=== PATIENT | female | born 1985 | race African-American/Black ===

== ENCOUNTER 2016-11-13 07:23 | Observation (INO) | payer OTHER, BC ==
[~2016-11-13] VITALS: Ht 157.5 cm; Wt 53.0 kg
[2016-11-13] VITALS (14 sets, daily range): BP systolic 130–172; BP diastolic 80–95; PULSE 72–86; RESP 16–19; TEMP 98; Ht 157.5 cm; Wt 53.0 kg
[~2016-11-13 07:23] MED LIST: AMLO-218 PO; ARIP5TAB7 PO; BENA40TA41 PO; CARV25TA79 PO; CLON-379 PO; CNC30T PO; DOXA1TAB PO; ESOM40CA PO; HYDR-3671 PO; HYDR200T5 PO; HYDR2TAB15 PO; LEVE500S9 PO; METO5TAB11 PO; PRED2.5T3 PO; SEVE800T10 PO; SEVE800T7 PO
[2016-11-13] MEDS ORDERED: FLUT9.9S NASAL (07:49)
[2016-11-13] MEDS ORDERED: ONDA4TAB8 PO (07:49)
[2016-11-13] MEDS ORDERED: ACET325T33 PO (07:49)
[2016-11-13] MEDS ORDERED: D-ME473S18 PO (07:49)
[2016-11-13] MEDS: ACETAMINOPHEN 325 MG TAB PO ONE ×2 (07:54→10:08)
[2016-11-13] MEDS: ONDANSETRON (ODT) 4 MG TAB ODT STA ×2 (07:54→10:08)
[2016-11-13] MEDS ORDERED: HYDROmorphONE 1 MG/ML SYG IV STA (08:26)
[2016-11-13] MEDS ORDERED: ONDANSETRON 4 MG INJ IV STA (08:26)
[2016-11-13 08:34] LABS: HEMATOCRIT 25.8 % (37.0-47.0); HEMOGLOBIN 8.4 g/dl (12.0-16.0); MEAN CORPUSCULAR HEMOGLOBIN 31.4 pg (29.0-33.0); MEAN CORPUSCULAR HGB CONC 32.6 g/dl (32.0-37.0); MEAN CORPUSCULAR VOLUME 96.1 fl (82.0-101.0); MEAN PLATELET VOLUME 9.4 fl (7.4-10.4); PLATELET COUNT 107 10^3/UL (140-440); RED BLOOD COUNT 2.68 10^6/ul (4.20-5.40); RED CELL DISTRIBUTION WIDTH 18.9 % (11.5-14.5); UNCORRECTED WBC 3.9 10^3/ul (4.8-10.8); WHITE BLOOD COUNT 3.9 10^3/ul (4.8-10.8)
[2016-11-13 08:38] LABS: ALBUMIN 3.5 g/dl (3.3-4.9)
[2016-11-13 08:40] LABS: CREATININE 11.98 mg/dl (0.44-1.00)
[2016-11-13 08:41] LABS: CALCIUM 8.3 mg/dl (8.4-10.2)
[2016-11-13 08:49] LABS: POTASSIUM 7.1 mmol/L (3.5-5.1)
[2016-11-13] MEDS ORDERED: DEXTROSE 50% 50 ML SYRINGE IV STA ×2 (08:49→12:49)
[2016-11-13] MEDS ORDERED: INSULIN REGULAR, HUMAN 100 UNIT/1 ML 3ML VIAL IV STA (08:49)
[2016-11-13] MEDS ORDERED: NA BICARBONATE 8.4% 50 ML SYG IV STA (08:49)
--- NOTE | 2016-11-13 08:58 | RADRPT ---
PROCEDURE: XR Chest. CLINICAL INDICATION: Chest pain TECHNIQUE: Single portable view of the chest was obtained COMPARISON: 09/19/16 FINDINGS: The heart is enlarged. The lungs are clear. There is no pleural effusion or pneumothorax. RPTAT: AA IMPRESSION: Mild Cardiomegaly. .Jaleel Cueto MD, Date Time Electronically viewed and signed by .Jaleel Cueto MD, on 11/13/2016 08:57 .S/
[2016-11-13 09:09] LABS: CONDITION 1; LH ANALYZER COMMENTS 1
[2016-11-13 09:32] LABS: ANISOCYTOSIS 2+; EOSINOPHILS # 0.1 10^3/ul (0.0-0.5); LYMPHOCYTES # 0.7 10^3/ul (0.8-2.9); MONOCYTE # 0.1 10^3/ul (0.3-0.9); NEUTROPHIL # 2.9 10^3/ul (1.6-7.5); PLATELET ESTIMATE PLT APPEAR DECREASED
[2016-11-13] MEDS ORDERED: DIPHENHYDRAMINE 50 MG INJ IV ONE (10:30)
[2016-11-13] MEDS ORDERED: ACETAMINOPHEN 325 MG TAB PO PRN ×2 (11:00→11:30)
[2016-11-13] MEDS ORDERED: ONDANSETRON 4 MG INJ IV PRN (11:00)
--- NOTE | 2016-11-13 11:06 | ERA ---
ER Documentation Chief Complaint Date/Time DATE: 11/13/16 TIME: 11:00 Chief Complaint flu like symptoms bodyaches HPI This is a 31-year-old dialysis patient who missed dialysis today. She says she has had diffuse body aches myalgias nausea some congestion and fatigue for the past 2 days. She does not think she has had a fever but not sure. She has had a slight cough slight sore throat no vomiting no short of breath no diarrhea no abdominal pain no photophobia or stiff neck headache. ROS All systems reviewed and are negative except as per history of present illness. Medications Home Meds Active Scripts Sevelamer Hcl* (Renagel*) 800 Mg Tablet, 1600 MG PO WITH MEALS, #90 TAB Prov:LYNNETTE SUTTON MD 09/24/16 Hydromorphone Hcl* (Dilaudid*) 2 Mg Tablet, 1 MG PO Q4H Y for PAIN LEVEL 6-10, # 1 TAB Prov:LYNNETTE SUTTON MD 09/24/16 Metoclopramide Hcl* (Metoclopramide Hcl*) 5 Mg Tablet, 5 MG PO TID Y for NAUSEA , #90 TAB Prov:LYNNETTE SUTTON MD 09/24/16 Esomeprazole Mag Trihydrate (Nexium) 40 Mg Capsule.dr, 40 MG PO BID, #60 CAP Prov:LYNNETTE SUTTON MD 09/24/16 Reported Medications Benazepril Hcl* (Benazepril Hcl*) 40 Mg Tablet, 40 MG PO BID, TAB 06/04/15 Doxazosin Mesylate* (Doxazosin Mesylate*) 1 Mg Tablet, 1 MG PO HS, TAB 06/04/15 Levetiracetam* (Keppra*) 500 Mg/5 Ml Solution, 500 MG PO BID, BOTTLE 06/04/15 Carvedilol* (Carvedilol*) 25 Mg Tablet, 25 MG PO BID, TAB 06/04/15 Prednisone* (Prednisone*) 2.5 Mg Tablet, 2.5 MG PO DAILY, TAB 06/04/15 Clonidine Hcl* (Clonidine Hcl*) 0.1 Mg Tab, 0.1 MG PO Q6, TAB 06/04/15 Hydralazine Hcl* (Hydralazine Hcl*) 25 Mg Tab, 25 MG PO Q6, TAB 06/04/15 Hydroxychloroquine Sulfate* (Plaquenil*) 200 Mg Tab, 200 MG PO DAILY, TAB 06/04/15 Cinacalcet* (Sensipar*) 30 Mg Tab, 30 MG PO, TAB 06/04/15 Aripiprazole* (Abilify*) 5 Mg Tab, 5 MG PO DAILY, TAB 06/04/15 Sevelamer Carbonate* (Renvela*) 800 Mg Tablet, 1600 MG PO WITH MEALS, TAB 06/04/15 Amlodipine Besylate* (Norvasc*) 10 Mg Tablet, 10 MG PO DAILY, TAB 06/04/15 Allergies Allergies: Coded Allergies: banana (Verified Allergy, Intermediate, 09/19/16) cyclobenzaprine (Verified Allergy, Intermediate, HIVES, 09/19/16) Metronidazole HCl (Verified Allergy, Unknown, hives, 09/19/16) codeine (Verified Allergy, Unknown, hives, 09/19/16) metronidazole (Verified Allergy, Unknown, hives, 09/19/16) morphine (Verified Allergy, Unknown, local rash, 09/19/16) Uncoded Allergies: SALMON (Allergy, Unknown, 06/05/15) PMhx/Soc History of Surgery: Yes (abdominal surgery laparoscopic x 7) Anesthesia Reaction: No Hx Neurological Disorder: Yes (stroke x3) Hx Respiratory Disorders: Yes (Chronic Sinusitis) Hx Cardiac Disorders: No (Heart murmur, pulmanry HTN, cardiomegaly) Hx Psychiatric Problems: Yes (anxiety) Hx Alcohol Use: No Hx Substance Use: Yes (marijuana) Hx Tobacco Use: No Smoking Status: Never smoker FmHx Family History: No coronary disease Physical Exam Vitals Vital Signs Date Time Temp Pulse Resp B/P Pulse Ox O2 Delivery O2 Flow Rate FiO2 11/13/16 07:34 98.0 85 18 161/86 100 Physical Exam Const: Well-developed, well-nourished Head: Atraumatic, normocephalic Eyes: Normal Conjunctiva, PERRLA, EOMI, normal sclera, no nystagmus ENT: Normal External Ears, Nose and Mouth, moist mucus membranes. Neck: Full range of motion. No meningismus, no lymphadenopathy. Resp: Clear to auscultation bilaterally, no wheezing, rhonchi, rales Cardio: Regular rate and rhythm, no murmurs, S1 S2 present Abd: Soft, non tender x 4, non distended. Normal bowel sounds, no guarding or rebound, no pulsitile abdominal masses or bruits Skin: No petechiae or rashes, no ecchymosis , no maculopapular rash Back: No midline or flank tenderness Ext: No cyanosis, or edema, FROM x 4, normal inspection, neurovascularly intact x 4 Neur: Awake and alert, STR 5/5 x 4, sensation intact x 4, no focal findings, cerebellum intact Psych: Normal Mood and Affect Result Diagram: 11/13/1671911/13/16719 Results 24 hrs Laboratory Tests Test 11/13/16 07:20 Alanine Aminotransferase (ALT/SGPT) 22IU/L Albumin 3.5g/dl Albumin/Globulin Ratio 1.00 Alkaline Phosphatase 90IU/L Anion Gap 21 Anisocytosis 2+ Aspartate Amino Transf (AST/SGOT) 14IU/L Basophils # 0.010^3/ul Basophils % 1.0% Blood Morphology Comment Blood Urea Nitrogen 42mg/dl Calcium Level 8.3mg/dl Carbon Dioxide Level 24mmol/L Chloride Level 102mmol/L Creatinine 11.98mg/dl Direct Bilirubin 0.00mg/dl Eosinophils # 0.110^3/ul Eosinophils % 3.0% Globulin 3.50g/dl Glucose Level 76mg/dl Hematocrit 25.8% Hemoglobin 8.4g/dl Indirect Bilirubin 0.0mg/dl Lymphocytes # 0.710^3/ul Lymphocytes % 18.0% Mean Corpuscular Hemoglobin 31.4pg Mean Corpuscular Hemoglobin Concent 32.6g/dl Mean Corpuscular Volume 96.1fl Mean Platelet Volume 9.4fl Monocytes # 0.110^3/ul Monocytes % 3.0% Neutrophils # 2.910^3/ul Neutrophils % 75.0% Nucleated Red Blood Cells # 10^3/ul Nucleated Red Blood Cells % /100WBC Platelet Count 54295^3/UL Platelet Estimate PLT APPEAR DECREASED Potassium Level 7.1mmol/L Red Blood Count 2.6810^6/ul Red Cell Distribution Width 18.9% Sodium Level 140mmol/L Total Bilirubin 0.0mg/dl Total Protein 7.0g/dl White Blood Count 3.910^3/ul Current Medications Medications (Trade) Dose Ordered Sig/Gen Route PRN Reason Start Time Stop Time Status Last Admin Dose Admin Ondansetron HCl (Zofran Odt) 4 mg ONCE STAT ODT 11/13/16 07:47 11/13/16 07:49 DC 11/13/16 10:08 Acetaminophen (Tylenol Tab) 650 mg ONCE ONCE PO 11/13/16 08:00 11/13/16 08:01 DC 11/13/16 10:08 Hydromorphone HCl (Dilaudid) 1 mg ONCE STAT IV 11/13/16 08:26 11/13/16 08:27 DC 11/13/16 10:10 Ondansetron HCl (Zofran Inj) 4 mg ONCE STAT IV 11/13/16 08:26 11/13/16 08:27 DC 11/13/16 10:08 Insulin Human Regular (Humulin R) 10 unit ONCE STAT IV 11/13/16 08:49 11/13/16 08:50 DC 11/13/16 10:09 Dextrose (D50w Syringe) 50 ml ONCE STAT IV 11/13/16 08:49 11/13/16 08:50 DC 11/13/16 10:10 Sodium Bicarbonate (Na Bicarb 8.4% Syg) 50 ml ONCE STAT IV 11/13/16 08:49 11/13/16 08:50 DC 11/13/16 10:10 Diphenhydramine HCl (Benadryl) 25 mg ONCE ONCE IV 11/13/16 10:30 11/13/16 10:31 DC 11/13/16 10:12 Procedures/MDM PROCEDURE: XR Chest. CLINICAL INDICATION: Chest pain TECHNIQUE: Single portable view of the chest was obtained COMPARISON: 09/19/16 FINDINGS: The heart is enlarged. The lungs are clear. There is no pleural effusion or pneumothorax. RPTAT: AA IMPRESSION: Mild Cardiomegaly. .Jaleel Cueto MD, Date Time Electronically viewed and signed by .Jaleel Cueto MD, on 11/13/2016 08: 57 .S/ CC: TERESITA VASQUEZ DO Patient's flu swab is still pending. The patient does not like she has a viral illness. Potassium is elevated at 7.1 however. She was treated with IV bicarbonate, insulin, D50 IV. I will admit her to the hospital to obtain hemodialysis to correct her hyperkalemia Critical Care: Time: 30 minutes Treatments/Evaluations: Close monitoring and treatment of unstable vital signs, cardiorespiratory, and neurologic status, while maintaining tight balance of fluid, respiratory, and cardiac interventions. Departure Diagnosis: Primary Impression: Hyperkalemia Condition: Stable TERESITA VASQUEZ DO Nov 13, 2016 11:06
[2016-11-13] MEDS ORDERED: ONDANSETRON 4 MG TAB PO PRN (11:30)
[2016-11-13] MEDS ORDERED: NACL 0.9% 3 ML SYG IV SCH (11:30)
[2016-11-13] MEDS ORDERED: DOCUSATE SODIUM 100 MG CAP PO PRN (11:30)
[2016-11-13] MEDS ORDERED: METOCLOPRAMIDE 5 MG TAB PO PRN (11:30)
[2016-11-13] MEDS ORDERED: HYDROmorphONE 2 MG TAB PO PRN (11:30)
[2016-11-13] MEDS ORDERED: LORAZEPAM 0.5 MG TAB PO PRN (11:30)
[2016-11-13] MEDS ORDERED: SEVELAMER CARBONATE 0.8 GM PKT PO SCH (12:00)
[2016-11-13] MEDS: ARIPIPRAZOLE 5 MG TAB PO SCH (12:00)
[2016-11-13] MEDS: LEVETIRACETAM (100 MG/ML) 5ML CUP PO SCH ×2 (13:05→23:41)
[2016-11-13] MEDS: predniSONE 2.5 MG TAB PO SCH (13:06)
[2016-11-13] MEDS: HYDROXYCHLOROQUINE 200 MG TAB PO SCH (13:06)
[2016-11-13] MEDS: AMLODIPINE 10 MG TAB PO SCH (13:07)
[2016-11-13] MEDS: CINACALCET 30 MG TAB PO SCH (13:08)
[2016-11-13] MEDS: SEVELAMER 800 MG TAB PO SCH ×2 (13:46→23:46)
--- NOTE | 2016-11-13 16:11 | CONS ---
DATE OF ADMISSION: 11/13/2016 DATE OF CONSULTATION: 11/13/2016 TYPE OF CONSULTATION: Nephrology. REASON FOR CONSULTATION: End-stage renal disease, hyperkalemia. PHYSICIAN REQUESTING CONSULT: Dr. Hutchins HISTORY OF PRESENT ILLNESS: This is a 31-year-old female with a past medical history of lupus, end- stage renal disease on dialysis Friday, Friday, and Friday, history of hypertension, anemia, sheet metal erector christel migraine, seizure disorder, gastritis, polycystic ovarian disease, and history of sinus polyps w hortensia presents to [facility] with complaints of lethargy and weakness. The patient s tated over the last several days she has noted increased fatigue, body aches, myalgia. The patient as a result came into the emergency room. Upon arrival, the patient had laboratory drawn which show ed a potassium of 5.1. Imaging data showed mild cardiomegaly but no pneumothorax. In the emergency room, the patient was given IV insulin, sodium bicarbonate, and dextrose. The patient denied any r ecent hemoptysis, hemetemesis, or hematochezia. PAST MEDICAL HISTORY: As stated above, history of lupus, end-stage renal disease, chronic sinusitis , hypertension, anemia, seizure disorder, chronic migraines, opiate dependence. PAST SURGICAL HISTORY: Status post AV fistula, status post multiple sinus surgeries. ALLERGIES: MULTIPLE. PLEASE SEE LIST. SOCIAL HISTORY: Does not drink, smoke, or do drugs. FAMILY HISTORY: No family history of kidney disease or heart disease. MEDICATIONS: Have been reviewed. REVIEW OF SYSTEMS: A 14-point review of systems was conducted. Pertinent positives stated in HPI; otherwise negative. PHYSICAL EXAMINATION: VITAL SIGNS: Blood pressure is currently 170/92, respiration 16, pulse 92, temperature 98.0. HEENT: Head is normocephalic. Pupils are reactive to light. NECK: Supple. HEART: Regular rate. LUNGS: Show diminished breath sounds at base. ABDOMEN: Soft, nontender to palpation. No rebound or guarding. EXTREMITIES: Negative for clubbing, cyanosis, no edema. DERMATOLOGIC: No rashes. MUSCULOSKELETAL: No joint effusions. NEUROLOGIC: No focal deficits. LABORATORY DATA: Has been reviewed and does show a white count of 3.9, hemoglobin 8.4, hematocrit 2 5.8, platelet count is 107. Sodium 140, potassium 7.1, BUN 42, creatinine 11.98. IMAGING STUDIES: Chest x-ray reviewed. ASSESSMENT AND PLAN: This is a 31-year-old female who presents with: 1. End-stage renal disease. The patient is currently hyperkalemic with potassium 7.1. We will vlad n for urgent hemodialysis for 4 hours on a 2K bath, calcium 2.5, ultrafiltrate as tolerated. 2. Hyperkalemia secondary to end-stage renal disease. The patient will be dialyzed for 4 hours on a 2 potassium bath. We will anticipate daily dialysis until the patient is normokalemic. The patie nt has been advised on keeping with a renal diet. 3. Hypertension. Continue current blood pressure regimen. Continue ultrafiltration dialysis. 4. Mineral bone disorder. Monitor calcium and phosphorus levels. Continue phosphate binders. 5. History of lupus. Continue Plaquenil and prednisone. 6. Anemia. Continue to monitor hemoglobin and hematocrit levels. We will give Epogen. 7. History of anxiety disorder. Continue to monitor and give Ativan as needed. 8. Seizure disorder. Continue Keppra. Thank you, Dr. Hutchins, for this interesting consultation. It will be a pleasure to follow the jim gilman with you throughout the hospital course. Dictated By: RAGINI DE LA TORRE/ABDOULAYE Conf#: [id number] DID#: [id number]
[2016-11-13] MEDS ORDERED: PANTOPRAZOLE (EC) 40 MG TAB PO SCH (18:00)
[2016-11-13] MEDS ORDERED: LIDOCAINE 1% (MDV) 20 ML INJ SC ONE (18:30)
--- NOTE | 2016-11-13 18:33 | HP ---
DATE OF ADMISSION: 11/13/2016 CONSULTANTS: Dr. Edgar, Nephrology. CHIEF COMPLAINT: Generalized weakness. HISTORY OF PRESENT ILLNESS: This is a pleasant 31-year-old female who is known to me from her prior hospitalization with a past medical history of end-stage renal disease, lupus, esophagitis, gastrop aresis, anemia, essential hypertension, mineral bone disease, anxiety, on hemodialysis on Friday, , and Friday, who missed her dialysis yesterday secondary to being weak and had flu-like symp toms. Today, patient presents to [facility] emergency room secondary to having flu-like sy mptoms. Vitals at the time of arrival to the emergency room were found to be temperature 98, pulse 85, respiration 18, blood pressure 161/86, oxygen saturation 100%. WBC 3.9, hemoglobin 8.4, hematoc rit 25.8, platelets of 107. Potassium 7.1, BUN of 42, creatinine 11.98. The patient was treated wi D5W in the course of emergency room, sodium bicarbonate, 10 units of insulin, Dilaudid, Zofran, a nd Tylenol and has been seen and evaluated by nephrology and will obtain her hemodialysis urgently. PAST MEDICAL AND SURGICAL HISTORY: 1. Lupus. 2. Hypertension. 3. Anxiety. 4. End-stage renal disease. 5. GERD. 6. Esophagitis. 7. Seizure disorder. 8. History of chemotherapy secondary to lupus. MEDICATIONS: 1. Amlodipine 10 mg. 2. Abilify 5 mg. 3. Benazepril 40 mg. 4. Coreg 25 mg. 5. Sensipar 30 mg. 6. Clonidine 0.1 mg. 7. Doxazosin 1 mg. 8. Nexium 40 mg. 9. Hydralazine 25 mg. 10. Dilaudid 2 mg. 11. Plaquenil 200 mg. 12. Keppra 500 mg. 13. ____ 5 mg. 14. Prednisone 2.5 mg. 15. Renvela 800 mg. 16. ____ 100 mg. ALLERGIES: 1. ____. 2. SALMON. 3. BANANA. 4. CODEINE. 5. CYCLOBENZAPRINE. 6. FLAGYL. 7. MORPHINE. SOCIAL HISTORY: Negative x3 for smoking, alcohol, illicit drugs. FAMILY HISTORY: Noncontributory. REVIEW OF SYSTEMS: As above per HPI. Positive for generalized weakness. Denies any fever, chills, weight gain, weight loss, anorexia. No chest pain, palpitations, edema, orthopnea. No change in v isual acuity, diplopia, photophobia. No headache, dizziness, lightheadedness. No abdominal pain. No restricted range of motion upper and lower extremities. No difficulty ambulating. No sick conta ct. No recent travel history. PHYSICAL EXAMINATION: VITAL SIGNS: At this time, temperature 98, pulse 73, respirations 18, blood pressure 128/96, oxygen saturation 100% in room air. GENERAL APPEARANCE: The patient is lying in bed comfortably without any distress. She is awake, al ert, oriented. She is able to answer my questions properly. EYES AND EARS, NOSE, THROAT: Conjunctivae and lids are normal. Pupils are normal. Extraocular mov ements normal. Hearing grossly normal. Lips are normal. Oral mucosa is moist. NECK: Supple. Trachea midline. No lymphadenopathy. RESPIRATORY: Effort is normal. Clear to auscultation bilaterally. CARDIOVASCULAR: Normal S1, S2. Regular rhythm and rate. No murmur, no bruits, no edema. Peripher al pulses, radial pulses palpable. Cap refill is normal. CHEST: Normal expansion of thorax during inspiration. GASTROINTESTINAL: Abdomen is soft, nontender, not distended. Bowel sounds present. No guarding, n o rebound. GENITOURINARY: Deferred. MUSCULOSKELETAL: Upper and lower extremities within normal limits. Full range of motion. Strength 5/5 in both upper and lower extremities. NEUROLOGIC: Cranial nerves II through XII are grossly intact. PSYCHIATRIC: Normal judgment and insight. Alert and oriented x3. Mood and affect is normal. LABORATORY WORK AND IMAGING: Sodium 140, potassium 7.1, chloride 102, bicarbonate 24, BUN 42, creat inine 11.98, glucose 76, calcium 8.3. LFTs all within normal limits. WBC 3.9, hemoglobin 8.4, sandra tocrit 25.8, platelets 107, MCV 96.1. ASSESSMENT AND PLAN: 1. Generalized weakness and flu-like symptoms. This is likely secondary to noncompliance with hemo dialysis and hyperkalemia. The patient will obtain urgent hemodialysis. 2. End-stage renal disease on hemodialysis. Nephrology has been consulted. Follow his recommendat ion. 3. Hyperkalemia, status post treatment with subq insulin, glucose, albuterol in the course of the e mergency room. The patient will obtain urgent hemodialysis as per nephrology. 4. History of lupus. Continue home medication. 5. Essential hypertension, well controlled on medical management. 6. Gastroesophageal reflux disease. Continue PPI. 7. Anxiety. Continue Abilify. 8. History of seizure. Continue Keppra. 9. For deep venous thrombosis prophylaxis, the patient will be placed on sequential compression dev ices. 10. Anemia of chronic disease. Continue to monitor. Will transfuse if the patient's hemoglobin an d decreases below 7.5. 11. We will continue to monitor patient closely. Further recommendations, management, and treatmen t as per clinical course. Total amount of time that was spent on evaluation of patient and admission workup 40 minutes. Dictated By: LYNNETTE LAZO/NTS Conf#: [id number] DID#: [id number]
[2016-11-13] MEDS ORDERED: DIPHENHYDRAMINE 50 MG INJ IV PRN (20:30)
[2016-11-13] MEDS: HYDROmorphONE 1 MG/ML SYG IV PRN (20:33)
[2016-11-13] MEDS: PANTOPRAZOLE 40 MG INJ IV SCH (23:16)
[2016-11-14] VITALS (18 sets, daily range): BP systolic 135–168; BP diastolic 80–104; PULSE 78–97; RESP 18–19
[2016-11-14] MEDS: HYDROmorphONE 1 MG/ML SYG IV PRN ×6 (00:33→21:45)
[2016-11-14] MEDS: DOXAZOSIN 1 MG TAB PO SCH ×2 (00:39→21:45)
[2016-11-14] MEDS: DIPHENHYDRAMINE 50 MG INJ IV PRN ×3 (05:03→19:49)
[2016-11-14] MEDS ORDERED: PANTOPRAZOLE 40 MG INJ IV SCH (06:00)
[2016-11-14] MEDS: PANTOPRAZOLE 40 MG INJ IV SCH ×2 (08:51→20:48)
[2016-11-14] MEDS: ARIPIPRAZOLE 5 MG TAB PO SCH (08:51)
[2016-11-14] MEDS: SEVELAMER 800 MG TAB PO SCH ×3 (08:51→17:37)
[2016-11-14] MEDS: HYDROXYCHLOROQUINE 200 MG TAB PO SCH (08:51)
[2016-11-14] MEDS: LEVETIRACETAM (100 MG/ML) 5ML CUP PO SCH ×2 (08:51→22:23)
[2016-11-14] MEDS: CINACALCET 30 MG TAB PO SCH (08:51)
[2016-11-14] MEDS: predniSONE 2.5 MG TAB PO SCH (08:52)
[2016-11-14] MEDS: AMLODIPINE 10 MG TAB PO SCH ×2 (09:00→17:37)
[2016-11-14] MEDS ORDERED: EPOETIN 10000 UNITS/1 ML INJ (ESRD) IV SCH (09:00)
--- NOTE | 2016-11-14 10:23 | PN ---
DATE: 11/14/2016 SUBJECTIVE: The patient is stable. No acute events overnight. The patient had hemodialysis yester day and tolerated it well, with 4.5 liters removed. No other acute events noted. OBJECTIVE: VITAL SIGNS: Blood pressure is 148/90, respirations 18, pulse 90, temperature 98.0. HEENT: Head is normocephalic. NECK: Supple. HEART: Regular rate. LUNGS: Show diminished breath sounds at the base. ABDOMEN: Soft, nontender to palpation. No rebound or guarding. EXTREMITIES: Negative for clubbing or cyanosis. No edema. DERMATOLOGIC: No rashes. MUSCULOSKELETAL: Have no joint effusion. NEUROLOGIC: No focal deficits. MEDICATIONS: The patient's medications have been reviewed. LABORATORY DATA: Currently pending. ASSESSMENT AND PLAN: 1. End-stage renal disease. The patient had urgent hemodialysis yesterday for 3.5 hours on a 2K ba th. Anticipate dialysis again today for solute clearance. 2. Hyperkalemia secondary to end-stage renal disease. The patient was dialyzed yesterday on a 2K b ath. Will have dialysis again today on a 2K bath. Will encourage the patient to adhere to a low pot assium diet. 3. Hypertension. Continue the current blood pressure regimen. Continue ultrafiltration with dialy sis. 4. Mineral bone disorder. Continue to monitor calcium and phosphorus levels. Continue phosphate b inders. 5. History of lupus. Continue Plaquenil and prednisone 6. Anemia. Continue to monitor hemoglobin and hematocrit levels. Continue Epogen following dialys is. 7. History of anxiety disorder. Continue Ativan. 8. History of seizure disorder. Continue Keppra. 9. Chronic pain syndrome. Continue pain regimen. 10. Generalized weakness. Continue physical therapy. Dictated By: RAGINI DE LA TORRE/NTS Conf#: [id number] DID#: [id number]
[2016-11-14] MEDS ORDERED: LIDOCAINE 1% (MDV) 20 ML INJ SC ONE ×3 (13:00)
--- NOTE | 2016-11-14 14:13 | PDOCDIS ---
Discharge Instructions CONDITION Patient Condition: Good HOME CARE INSTRUCTIONS: Diet Instructions: Reduced SodiumSpecial Diet: RENAL ACTIVITY: Activity Restrictions: No Restrictions FOLLOW UP/APPOINTMENTS Appointments Follow up with PCP in one week Follow up with nephrology as schedule LYNNETTE SUTTON MD Nov 14, 2016 14:13
[2016-11-14 14:54] LABS: ALBUMIN 3.4 g/dl (3.3-4.9)
[2016-11-14 14:55] LABS: POTASSIUM 5.6 mmol/L (3.5-5.1)
[2016-11-14 14:57] LABS: ALBUMIN/GLOBULIN RATIO 0.89; BILIRUBIN,INDIRECT 0.3 mg/dl (0-1.1); BILIRUBIN,TOTAL 0.3 mg/dl (0.2-1.3); CALCIUM 7.5 mg/dl (8.4-10.2); CREATININE 6.52 mg/dl (0.44-1.00); TOTAL PROTEIN 7.2 g/dl (6.1-8.1)
[2016-11-14 14:58] LABS: MAGNESIUM 2.2 mg/dl (1.7-2.5)
[2016-11-14] MEDS ORDERED: hydrALAzine 20 MG INJ IV ONE (20:00)
--- NOTE | 2016-11-15 13:29 | DS ---
DATE OF ADMISSION: 11/13/2016 DATE OF DISCHARGE: 11/15/2016 CONSULTANTS: Dr. Ashok Edgar, front office java developer PROCEDURES: Hemodialysis. DIAGNOSES: 1. Generalized weakness, flu-like symptoms secondary to noncompliance with hemodialysis and hyperka lemia. 2. Hyperkalemia secondary to noncompliance with hemodialysis. The patient is status post hemodialy sis. 3. End-stage renal disease on hemodialysis. 4. History of lupus. Continue home medication. 5. Essential hypertension, well controlled on medical management. Discontinue clonidine. 6. Gastroesophageal reflux disease. Continue PPI. 7. Anxiety. Continue Abilify 8. History of seizure. Continue Keppra. 9. Anemia of chronic disease, stable. MEDICATIONS: 1. Amlodipine 10 mg. 2. Abilify 5 mg. 3. Benazepril 40 mg b.i.d. 4. Coreg 25 mg b.i.d. 5. Sensipar 30 mg. 6. Cardura 1 mg at bedtime. 7. Nexium 40 mg. 8. Hydralazine 25 mg. 9. Dilaudid 1 mg. 10. Plaquenil 200 mg. 11. Keppra 500 mg. 12. Reglan 5 mg. 13. Zyprexa 2.5 mg. 14. Renvela 1600 mg. ALLERGIES: 1. METRONIDAZOLE. 2. SALMON. 3. BANANA. 4. CODEINE. 5. CYCLOBENZAPRINE. 6. MORPHINE. DISPOSITION: Home. VITAL SIGNS: Temperature 98.0, pulse 87, respirations 18, blood pressure 137/80, oxygen 98%. LABORATORIES: The patient has refused lab draw this morning, although her last lab is sodium 139, potassium 4.6, chloride 99, bicarbonate 30, BUN 16, creatinine 6.52, glucose 103, calcium 7.5. HOSPITAL COURSE: This is a pleasant 31-year-old female who is known to me from prior hospitalizatio n with past medical history of end-stage renal disease, lupus, esophagitis, gastroparesis, anemia, e ssential hypertension, mineral bone disease, anxiety, end-stage renal disease on hemodialysis on Fri, Wednesdays and Fridays, who missed a dialysis on 11/02/2016, and the patient fell asleep and w as feeling weak and had flu-like symptoms. She presented to [facility] on 017 when she was complaining of having generalized weakness. She was found to have blood pressure 1 61/86, hemoglobin 8.4, hematocrit 25.8, BUN of 42, creatinine 11.98. The patient was treated with D 5W, sodium bicarb, units of insulin. Nephrology was consulted. The patient was admitted to t elemetry floor where we obtained her hemodialysis. The patient's blood pressure medication was read justed. She was continued on all her home medications except the clonidine because of the polypharm acy. I have spoken to nephrology who follows her outpatient, discussed the medications with him, an d his standpoint also. We can continue hydralazine and discussed . The patient's benazepril w as also placed on hold secondary to hyperkalemia. At this time, the patient is awake, alert, orient ed. The patient denies any chest pain, shortness of breath, nausea, vomiting, diarrhea or headache or generalized weakness. The patient at this time will be discharged home in stable condition with close followup with her primary care physician and nephrology as outpatient. CONDITION AT TIME OF DISCHARGE: Stable. Dictated By: LYNNETTE LAZO/ABDOULAYE Conf#: [id number] DID#: [id number] CC: [facility];*EndCC*
== END 2016-11-15 00:15 | disposition home or self-care (01) ==
LOC: FTE 07:23 → TEL 10:59 → UNDOADMOB 10:59 → UNDODISOB 11-15 00:15
PROVIDERS: ADMIT Family Medicine; ATTEND Family Medicine
DX: I12.0 Hypertensive chronic kidney disease with stage 5 chronic kidney disease or end stage renal disease (principal); N18.6 End stage renal disease; E87.5 Hyperkalemia; Z99.2 Dependence on renal dialysis; Z91.15 Patient's noncompliance with renal dialysis; M32.9 Systemic lupus erythematosus, unspecified; K21.9 Gastro-esophageal reflux disease without esophagitis; F41.9 Anxiety disorder, unspecified; G40.909 Epilepsy, unspecified, not intractable, without status epilepticus; D63.8 Anemia in other chronic diseases classified elsewhere; M89.8X9 Other specified disorders of bone, unspecified site
CPT/HCPCS: 71010; 80053; 82962; 83735; 85025; 87081; 90935; 96372; 96374; 96375; 96376; 99291; C9113; G0378; J0360; J1170; J1200; J1815; J2405; J7512

== ENCOUNTER 2016-12-22 21:04 | Emergency (ER) | payer OTHER, BC ==
[~2016-12-22] VITALS: Ht 157.5 cm; Wt 52.6 kg
[~2016-12-22 21:04] MED LIST changes: -CLON-379 PO
[2016-12-22 21:09] VITALS: Ht 157.5 cm; Wt 52.6 kg
[2016-12-22] MEDS ORDERED: HYDROmorphONE 1 MG/ML SYG IM STA (22:01)
[2016-12-22] MEDS ORDERED: ONDANSETRON (ODT) 4 MG TAB ODT STA (22:01)
[2016-12-22] MEDS ORDERED: DIPHENHYDRAMINE 25 MG CAP PO ONE (22:30)
--- NOTE | 2016-12-22 22:38 | RADRPT ---
PROCEDURE: Portable chest x-ray. CLINICAL INDICATION: Cough. TECHNIQUE: Portable AP view of the chest. COMPARISON: 11/13/2016. FINDINGS: No pulmonary edema or conolidation is identified. The cardiac silhouette is magnified. No pleural effusion is seen. There is no pneumothorax. IMPRESSION: 1. No evidence of acute cardiopulmonary disease. RPTAT: HTAR .Donny Fair MD, MD Date Time Electronically viewed and signed by .Donny Fair MD, on 12/22/2016 22:38 .R/
[2016-12-22] MEDS ORDERED: AZIT250T94 PO (23:36)
[2016-12-22] MEDS ORDERED: NAPR-260 PO (23:36)
[2016-12-22] MEDS ORDERED: ONDA4TAB8 PO (23:36)
[2016-12-22] MEDS ORDERED: OSLT75C PO (23:38)
[2016-12-22] MEDS ORDERED: D-ME473S18 PO (23:39)
--- NOTE | 2016-12-22 23:44 | ERD ---
ER Documentation Chief Complaint Date/Time DATE: 12/22/16 TIME: 23:40 Chief Complaint Flu symptoms X 2 days. HPI This is a 31-year-old female that presents to the ER with body aches, cough, nausea, vomiting that started today. Patient states that body aches are severe. The vomiting is nonbilious nonbloody. Cough is productive. She denies any chest pain or shortness of breath. Patient has a past medical history of lupus and she is currently on dialysis secondary to lupus. She denies any numbness or tingling of her body. Denies any muscle cramping. Denies any chest pain or shortness of breath. ROS 12 point review of systems was done, all negative except per HPI. Medications Home Meds Active Scripts Dextromethorphan Hb-Promethazine Hcl (Promethazine DM Syrup) 473 Ml Syrup, 10 ML PO Q6H Y for COUGH, #4 OZ Prov:INDRA SAMANIEGO 12/22/16 Oseltamivir Phosphate* (Tamiflu*) 75 Mg Capsule, 75 MG PO BID for 5 Days, CAP Prov:INDRA SAMANIEGO 12/22/16 Naproxen* (Naprosyn*) 500 Mg Tablet, 500 MG PO BID Y for PAIN AND/OR INFLAMMATION, #30 TAB Prov:INDRA SAMANIEGO 12/22/16 Ondansetron Hcl* (Zofran*) 4 Mg Tablet, 4 MG PO Q6H for NAUSEA AND/OR VOMITING, #30 TAB Prov:INDRA SAMANIEGO 12/22/16 Sevelamer Hcl* (Renagel*) 800 Mg Tablet, 1600 MG PO WITH MEALS, #90 TAB Prov:LYNNETTE SUTTON MD 09/24/16 Hydromorphone Hcl* (Dilaudid*) 2 Mg Tablet, 1 MG PO Q4H Y for PAIN LEVEL 6-10, # 1 TAB Prov:LYNNETTE SUTTON MD 09/24/16 Metoclopramide Hcl* (Metoclopramide Hcl*) 5 Mg Tablet, 5 MG PO TID Y for NAUSEA , #90 TAB Prov:LYNNETTE SUTTON MD 09/24/16 Esomeprazole Mag Trihydrate (Nexium) 40 Mg Capsule.dr, 40 MG PO BID, #60 CAP Prov:LYNNETTE SUTTON MD 09/24/16 Reported Medications Benazepril Hcl* (Benazepril Hcl*) 40 Mg Tablet, 40 MG PO BID, TAB 06/04/15 Doxazosin Mesylate* (Doxazosin Mesylate*) 1 Mg Tablet, 1 MG PO HS, TAB 06/04/15 Levetiracetam* (Keppra*) 500 Mg/5 Ml Solution, 500 MG PO BID, BOTTLE 06/04/15 Carvedilol* (Carvedilol*) 25 Mg Tablet, 25 MG PO BID, TAB 06/04/15 Prednisone* (Prednisone*) 2.5 Mg Tablet, 2.5 MG PO DAILY, TAB 06/04/15 Hydralazine Hcl* (Hydralazine Hcl*) 25 Mg Tab, 25 MG PO Q6, TAB 06/04/15 Hydroxychloroquine Sulfate* (Plaquenil*) 200 Mg Tab, 200 MG PO DAILY, TAB 06/04/15 Cinacalcet* (Sensipar*) 30 Mg Tab, 30 MG PO, TAB 06/04/15 Aripiprazole* (Abilify*) 5 Mg Tab, 5 MG PO DAILY, TAB 06/04/15 Sevelamer Carbonate* (Renvela*) 800 Mg Tablet, 1600 MG PO WITH MEALS, TAB 06/04/15 Amlodipine Besylate* (Norvasc*) 10 Mg Tablet, 10 MG PO DAILY, TAB 06/04/15 Allergies Allergies: Coded Allergies: banana (Verified Allergy, Intermediate, 09/19/16) cyclobenzaprine (Verified Allergy, Intermediate, HIVES, 09/19/16) Metronidazole HCl (Verified Allergy, Unknown, hives, 09/19/16) codeine (Verified Allergy, Unknown, hives, 09/19/16) metronidazole (Verified Allergy, Unknown, hives, 09/19/16) morphine (Verified Allergy, Unknown, local rash, 09/19/16) Uncoded Allergies: SALMON (Allergy, Unknown, 06/05/15) PMhx/Soc History of Surgery: Yes (laparoscopy for PCOS, appendectomy, cholecystectomy, AV graft x 4, ) Anesthesia Reaction: Yes (it took her awhile to wake up) Hx Neurological Disorder: Yes (seizures, stroke x 3) Hx Respiratory Disorders: No Hx Cardiac Disorders: Yes (htn) Hx Psychiatric Problems: No Hx Alcohol Use: Yes Hx Substance Use: No Hx Tobacco Use: No Physical Exam Vitals Vital Signs Date Time Temp Pulse Resp B/P Pulse Ox O2 Delivery O2 Flow Rate FiO2 12/22/16 21:09 99.3 101 18 145/88 100 Physical Exam GENERAL: The patient is well-developed, well-nourished, in no acute distress. NECK: Cervical spine is non tender with no step off. Supple, no nuchal rigidity HEENT: Atraumatic. Pupils equal, round and reactive to light. Extraocular muscles are grossly intact. Conjunctivae pink, no discharge. Bilateral tympanic membranes are clear with no evidence of erythema, effusion or dulling of the light reflex. Tonsilar erythema with no exudates or uvular deviation. Clear rhinorrhea. RESPIRATORY: Clear to auscultation bilaterally. There are no rales, wheezes or rhonchi. HEART: Regular rate and rhythm. No murmurs, clicks, rubs or gallops. EXTREMITIES: No clubbing or cyanosis. Full range of motion. Grossly neurovascularly intact. NEUROLOGIC: Alert and oriented. Cranial nerves II through XII are intact. SKIN: There is no rash. The skin is warm and dry. Results 24 hrs Current Medications Medications (Trade) Dose Ordered Sig/Gen Route PRN Reason Start Time Stop Time Status Last Admin Dose Admin Hydromorphone HCl (Dilaudid) 1 mg ONCE STAT IM 12/22/16 22:01 12/22/16 22:04 DC 12/22/16 22:46 Ondansetron HCl (Zofran Odt) 4 mg ONCE STAT ODT 12/22/16 22:01 12/22/16 22:04 DC 12/22/16 22:47 Diphenhydramine HCl (Benadryl) 25 mg ONCE ONCE PO 12/22/16 22:30 12/22/16 22:31 DC 12/22/16 22:59 Procedures/MDM Patient states that the only thing that works for her is Dilaudid and Benadryl. Patient was given a milligram of Dilaudid, Benadryl, and Zofran. Throughout ER course. I doubt dehydration. Doubt acute abdomen. Patient's physical examination is completely benign. Patient has already had her appendix and gallbladder removed. I doubt intra-abdominal abscess. Patient's fever is likely related to upper respiratory infection, patient does have influenza-like symptoms. Clinical suspicion for pneumonia is low as patient appears well, is not hypoxic or in any respiratory distress. Additionally, patients physical examination is benign. Plan was discussed with patient they understand and agree. Patient needs to follow up with PCP in 1-2 days or return to ER sooner if symptoms worsen. Departure Diagnosis: Primary Impression: Influenza-like symptoms Condition: Stable Patient Instructions: Bronchitis, Antiobiotic Treatment (Adult) Additional Instructions: Call your primary care doctor TOMORROW for an appointment during the next 1-2 days.See the doctor sooner or return here if your condition worsens before your appointment time. INDRA SAMANIEGO Dec 22, 2016 23:44
[2016-12-22] MEDS ORDERED: METO10TA92 PO (23:53)
[2016-12-22 23:57] VITALS: BP 176/99; PULSE 91; RESP 16
== END 2016-12-22 23:58 | disposition home or self-care (01) ==
LOC: FTE 21:04
DX: R05 Cough (principal); R52 Pain, unspecified; R11.2 Nausea with vomiting, unspecified; I10 Essential (primary) hypertension
CPT/HCPCS: 71010; 87400; 96372; 99284; J1170

== ENCOUNTER 2017-09-07 06:31 | Emergency (ER) | payer OTHER, BC ==
[~2017-09-07] VITALS: Ht 157.5 cm; Wt 53.0 kg
[~2017-09-07 06:31] MED LIST changes: +D-ME473S18 PO; -HYDR2TAB15 PO; +HYDR2TAB36 PO; +LEVE500S8 PO; -LEVE500S9 PO; +METO10TA92 PO; +NAPR-260 PO; +ONDA4TAB8 PO; +OSLT75C PO
[2017-09-07 06:33] VITALS: Ht 157.5 cm; Wt 53.0 kg
[2017-09-07] MEDS ORDERED: HYDROmorphONE 1 MG/ML SYG IV STA (07:25)
[2017-09-07] MEDS ORDERED: ONDANSETRON 4 MG INJ IV STA (07:25)
[2017-09-07 08:57] LABS: ABNORMAL IP MESSAGE 1; BASOPHILS % 0.6 % (0.0-2.0); EOSINOPHILS # 0.2 10^3/ul (0.0-0.5); EOSINOPHILS % 4.2 % (0.0-7.0); HEMATOCRIT 32.1 % (37.0-47.0); HEMOGLOBIN 10.1 g/dl (12.0-16.0); LYMPHOCYTES % 28.2 % (15.0-51.0); MEAN CORPUSCULAR HGB CONC 31.5 g/dl (32.0-37.0); MEAN CORPUSCULAR VOLUME 101.6 fl (82.0-101.0); MONOCYTE # 0.3 10^3/ul (0.3-0.9); MONOCYTES % 9.6 % (0.0-11.0); NEUTROPHILS % 57.1 % (39.0-77.0); PLATELET COUNT 126 10^3/UL (140-415); RED BLOOD COUNT 3.16 10^6/ul (4.20-5.40); RED CELL DISTRIBUTION WIDTH 16.7 % (11.5-14.5); WHITE BLOOD COUNT 3.5 10^3/ul (4.8-10.8)
[2017-09-07 09:04] LABS: MEAN PLATELET VOLUME 13.2 fl (7.4-10.4); POSITIVE DIFF @See below
[2017-09-07 10:15] LABS: ALANINE AMINOTRANSFERASE 17 IU/L (13-69); ALBUMIN 4.2 g/dl (3.3-4.9); ALBUMIN/GLOBULIN RATIO 0.95; ALKALINE PHOSPHATASE 86 IU/L (42-121); ANION GAP 22 (8-16); ASPARTATE AMINO TRANSFERASE 17 IU/L (15-46); BLOOD UREA NITROGEN 52 mg/dl (7-20); CALCIUM 8.6 mg/dl (8.4-10.2); CARBON DIOXIDE 26 mmol/L (21-31); CHLORIDE 96 mmol/L (97-110); CREATINE KINASE 161 IU/L (23-200); CREATININE 11.19 mg/dl (0.44-1.00); GLUCOSE 78 mg/dl (70-220); SODIUM 137 mmol/L (135-144); TOTAL PROTEIN 8.6 g/dl (6.1-8.1)
[2017-09-07 10:22] LABS: POTASSIUM 6.7 mmol/L (3.5-5.1)
[2017-09-07 10:27] LABS: CK-MB 0.58 ng/ml (0.0-2.4)
[2017-09-07 10:28] LABS: TROPONIN-I < 0.012 ng/ml (0.00-0.12)
[2017-09-07 13:30] VITALS: BP 176/123; PULSE 108; RESP 17
[2017-09-07] MEDS ORDERED: ONDANSETRON (ODT) 4 MG TAB ODT STA (13:41)
[2017-09-07] MEDS ORDERED: HYDROmorphONE 1 MG/ML SYG IM STA (13:41)
--- NOTE | 2017-09-07 13:45 | ERD ---
ER Documentation Chief Complaint Chief Complaint Pt presents with pelvic and B leg pain x 2 weeks, Fri K: 8.9 pre HD. HPI This is a 32-year-old female who is on dialysis, Friday. She said she went on Friday. Patient states that her legs are burning and hurting and this is a sign of possible high potassium because she has had this in the past. She has had leg pain off and on for the past month. She is also expressing her frustration for her physical condition and she is in chronic pain from her lupus. She says she has no abdominal pain chest pain shortness of breath. Says she has occasional nausea vomiting throughout the month is nonbloody and nonbilious none of recent. ROS All systems reviewed and are negative except as per history of present illness. Medications Home Meds Active Scripts Metoclopramide* (Reglan*) 10 Mg Tablet, 10 MG PO Q6 Y for NAUSEA AND/OR VOMITING , #20 TAB Prov:INDRA SAMANIEGO 12/22/16 Dextromethorphan Hb-Promethazine Hcl (Promethazine DM Syrup) 473 Ml Syrup, 10 ML PO Q6H Y for COUGH, #4 OZ Prov:INDRA SAMANIEGO 12/22/16 Oseltamivir Phosphate* (Tamiflu*) 75 Mg Capsule, 75 MG PO BID for 5 Days, CAP Prov:INDRA SAMANIEGO 12/22/16 Naproxen* (Naprosyn*) 500 Mg Tablet, 500 MG PO BID Y for PAIN AND/OR INFLAMMATION, #30 TAB Prov:INDRA SAMANIEGO 12/22/16 Ondansetron Hcl* (Zofran*) 4 Mg Tablet, 4 MG PO Q6H for NAUSEA AND/OR VOMITING, #30 TAB Prov:INDRA SAMANIEGO 12/22/16 Sevelamer Hcl* (Renagel*) 800 Mg Tablet, 1600 MG PO WITH MEALS, #90 TAB Prov:LYNNETTE SUTTON MD 09/24/16 Hydromorphone Hcl* (Dilaudid*) 2 Mg Tablet, 1 MG PO Q4H Y for PAIN LEVEL 6-10, # 1 TAB Prov:LYNNETTE SUTTON MD 09/24/16 Metoclopramide Hcl* (Metoclopramide Hcl*) 5 Mg Tablet, 5 MG PO TID Y for NAUSEA , #90 TAB Prov:LYNNETTE SUTTON MD 09/24/16 Esomeprazole Mag Trihydrate (Nexium) 40 Mg Capsule.dr, 40 MG PO BID, #60 CAP Prov:LYNNETTE SUTTON MD 09/24/16 Reported Medications Benazepril Hcl* (Benazepril Hcl*) 40 Mg Tablet, 40 MG PO BID, TAB 06/04/15 Doxazosin Mesylate* (Doxazosin Mesylate*) 1 Mg Tablet, 1 MG PO HS, TAB 06/04/15 Levetiracetam* (Keppra*) 500 Mg/5 Ml Solution, 500 MG PO BID, BOTTLE 06/04/15 Carvedilol* (Carvedilol*) 25 Mg Tablet, 25 MG PO BID, TAB 06/04/15 Prednisone* (Prednisone*) 2.5 Mg Tablet, 2.5 MG PO DAILY, TAB 06/04/15 Hydralazine Hcl* (Hydralazine Hcl*) 25 Mg Tab, 25 MG PO Q6, TAB 06/04/15 Hydroxychloroquine Sulfate* (Plaquenil*) 200 Mg Tab, 200 MG PO DAILY, TAB 06/04/15 Cinacalcet* (Sensipar*) 30 Mg Tab, 30 MG PO, TAB 06/04/15 Aripiprazole* (Abilify*) 5 Mg Tab, 5 MG PO DAILY, TAB 06/04/15 Sevelamer Carbonate* (Renvela*) 800 Mg Tablet, 1600 MG PO WITH MEALS, TAB 06/04/15 Amlodipine Besylate* (Norvasc*) 10 Mg Tablet, 10 MG PO DAILY, TAB 06/04/15 Allergies Allergies: Coded Allergies: banana (Verified Allergy, Intermediate, 09/19/16) cyclobenzaprine (Verified Allergy, Intermediate, HIVES, 09/19/16) Metronidazole HCl (Verified Allergy, Unknown, hives, 09/19/16) codeine (Verified Allergy, Unknown, hives, 09/19/16) metronidazole (Verified Allergy, Unknown, hives, 09/19/16) morphine (Verified Allergy, Unknown, local rash, 09/19/16) Uncoded Allergies: SALMON (Allergy, Unknown, 06/05/15) PMhx/Soc History of Surgery: Yes (laparoscopy for PCOS, appendectomy, cholecystectomy, AV graft x 4, ) Anesthesia Reaction: Yes (it took her awhile to wake up) Hx Neurological Disorder: Yes (seizures, stroke x 3) Hx Respiratory Disorders: No Hx Cardiac Disorders: Yes (htn) Hx Psychiatric Problems: No Hx Alcohol Use: Yes Hx Substance Use: No Hx Tobacco Use: No Smoking Status: Never smoker FmHx Family History: No coronary disease Physical Exam Vitals Vital Signs Date Time Temp Pulse Resp B/P Pulse Ox O2 Delivery O2 Flow Rate FiO2 09/07/17 06:33 97.6 112 18 184/107 100 Physical Exam Const: [Well-developed, well-nourished] Head: [Atraumatic, normocephalic] Eyes: [Normal Conjunctiva, PERRLA, EOMI, normal sclera, no nystagmus] ENT: [Normal External Ears, Nose and Mouth, moist mucus membranes.] Neck: [Full range of motion. No meningismus, no lymphadenopathy.] Resp: [Clear to auscultation bilaterally, no wheezing, rhonchi, rales] Cardio: [Regular rate and rhythm, no murmurs, S1 S2 present] Abd: [Soft, non tender x 4, non distended. Normal bowel sounds, no guarding or rebound, no pulsitile abdominal masses or bruits] Skin: [No petechiae or rashes, no ecchymosis , no maculopapular rash] Back: [No midline or flank tenderness] Ext: [No cyanosis, or edema, FROM x 4, normal inspection, neurovascularly intact x 4] Neur: [Awake and alert, STR 5/5 x 4, sensation intact x 4, no focal findings, cerebellum intact] Psych: [Normal Mood and Affect] Result Diagram: 09/07/17 0806 09/07/17 0940 Results 24 hrs Laboratory Tests Test 09/07/17 08:06 09/07/17 09:40 White Blood Count 3.510^3/ul Red Blood Count 3.1610^6/ul Hemoglobin 10.1g/dl Hematocrit 32.1% Mean Corpuscular Volume 101.6fl Mean Corpuscular Hemoglobin 32.0pg Mean Corpuscular Hemoglobin Concent 31.5g/dl Red Cell Distribution Width 16.7% Platelet Count 02446^3/UL Mean Platelet Volume 13.2fl Neutrophils % 57.1% Lymphocytes % 28.2% Monocytes % 9.6% Eosinophils % 4.2% Basophils % 0.6% Nucleated Red Blood Cells % 0.0/100WBC Neutrophils # 2.010^3/ul Lymphocytes # 1.010^3/ul Monocytes # 0.310^3/ul Eosinophils # 0.210^3/ul Basophils # 0.010^3/ul Nucleated Red Blood Cells # 0.010^3/ul Sodium Level 137mmol/L Potassium Level 6.7mmol/L Chloride Level 96mmol/L Carbon Dioxide Level 26mmol/L Anion Gap 22 Blood Urea Nitrogen 52mg/dl Creatinine 11.19mg/dl Glucose Level 78mg/dl Calcium Level 8.6mg/dl Total Bilirubin 0.0mg/dl Direct Bilirubin 0.00mg/dl Indirect Bilirubin 0.0mg/dl Aspartate Amino Transf (AST/SGOT) 17IU/L Alanine Aminotransferase (ALT/SGPT) 17IU/L Alkaline Phosphatase 86IU/L Creatine Kinase 161IU/L Creatine Kinase Index 0.4 Creatinine Kinase MB (Mass) 0.58ng/ml Troponin I < 0.012ng/ml Total Protein 8.6g/dl Albumin 4.2g/dl Globulin 4.40g/dl Albumin/Globulin Ratio 0.95 Current Medications Medications (Trade) Dose Ordered Sig/Gen Route PRN Reason Start Time Stop Time Status Last Admin Dose Admin Hydromorphone HCl (Dilaudid) 1 mg ONCE STAT IV 09/07/17 07:25 09/07/17 07:28 DC Ondansetron HCl (Zofran Inj) 4 mg ONCE STAT IV 09/07/17 07:25 09/07/17 07:28 DC Procedures/MDM Patient is found to have a high potassium. He has had multiple pages to the patient's radiocommunications technician doc for nephrology. Dr. foss called back and said he does not take care of nephrology patients to the patient's primary grinder operator called Dr. Stanley He called back in a timely fashion and will admit the patient for hemodialysis Multiple IV attempts are made but unsuccessful to treat her high potassium. Her potassium is elevated but not any critical range she will get dialysis today will be admitted Departure Diagnosis: Primary Impression: Hyperkalemia Condition: Stable TERESITA VASQUEZ DO Sep 07, 2017 13:45
[2017-09-07] MEDS ORDERED: ONDANSETRON (ODT) 4 MG TAB ODT ONE (13:46)
[2017-09-07] MEDS ORDERED: DIPHENHYDRAMINE 50 MG CAP ONE (13:52)
[2017-09-07] MEDS ORDERED: ONDANSETRON 4 MG INJ IV PRN (14:00)
[2017-09-07] MEDS ORDERED: DIPHENHYDRAMINE 50 MG CAP PO ONE (14:00)
[2017-09-07] MEDS ORDERED: ACETAMINOPHEN 325 MG TAB PO PRN (14:00)
== END 2017-09-07 14:06 | disposition left against medical advice (07) ==
LOC: E/R 06:31
DX: E87.5 Hyperkalemia (principal); I10 Essential (primary) hypertension
CPT/HCPCS: 36415; 80053; 82550; 82553; 84484; 85025; 96372; 99284; J1170; J2405

== ENCOUNTER 2018-10-04 13:30 | Emergency (ER) | END 2018-10-04 22:37 | disposition home or self-care (01) ==